=== PATIENT | male | born 1950 | race African-American/Black ===

== ENCOUNTER 2019-12-02 18:29 | Inpatient (IN) ==
[2019-12-02] MEDS ORDERED: hydrALAZINE 20 MG/1 ML VIAL IV STA (22:26)
[2019-12-02] MEDS ORDERED: ALBUTEROL 2.5 MG/3 ML NEB RESP TX PRN (22:51)
[2019-12-02] MEDS ORDERED: ONDANSETRON 4 MG/2 ML VIAL IV PRN (22:51)
[2019-12-02] MEDS ORDERED: hydrALAZINE 20 MG/1 ML VIAL IV PRN (22:56)
[2019-12-02] MEDS ORDERED: ENOXAPARIN 40 MG/0.4 ML SYRINGE SUBCUT SCH (23:00)
[2019-12-02] MEDS ORDERED: METOPROLOL TARTRATE 25 MG TABLET PO SCH (23:00)
[2019-12-02] MEDS ORDERED: niCARdipine INJ 25 MG in SODIUM CHLORIDE 0.9% 240 ML IV PRN (23:38)
[2019-12-03] MEDS: SODIUM CHLORIDE 0.9% 1,000 ML IV SCH ×3 (00:38→21:50)
[2019-12-03 01:01] LABS: Basophils % 0.3 % (0.0-0.8); Eosinophils % 0.1 % (0.00-10.9); Hematocrit 45.1 VOL% (42.0-52.0); Hemoglobin 14.7 GM/DL (14.0-18.0); Immature Granulocytes % 0.4 %; Immature Granulocytes Absolute 0.04 #; Lymphocytes # 0.9 10*3/uL (1.4-4.0); Mean Corpuscular HGB Conc 32.6 GM/DL (32-36); Mean Corpuscular Volume 83.2 FL (87-102); Mean Platelet Volume 10.1 FL (9.6-12.0); Monocytes % 10.5 % (1.7-12.7); Neutrophils % 78.7 % (38.7-73.9); Platelet Count 223 T/CUMM (130-400); Red Blood Count 5.42 MC/CUMM (3.8-5.5); Red Cell Distribution Width 13.9 % (9.3-17.3); White Blood Count 9.1 T/CUMM (4-12)
[2019-12-03 01:02] LABS: Albumin 3.9 G/DL (3.4-5.0); Bilirubin,Direct 0.28 MG/DL (0.0-0.20); Bilirubin,Indirect 0.9 MG/DL (0.0-1.0); Bilirubin,Total 1.2 MG/DL (0.2-1.0); Total Protein 8.5 G/DL (6.4-8.3)
[2019-12-03 01:08] LABS: Calcium 9.6 MG/DL (8.5-10.1); Osmolality,Calculated 270.4 MOS/KG (273-304); Risk Ratio 4.69; Thyroid Stimulating Hormone 0.527 uIU/ml (0.358-3.74); VLDL CHOLESTEROL 12.8 MG/DL
[2019-12-03] MEDS: LABETALOL 20 MG/4 ML SYRINGE IV PRN (02:07)
[2019-12-03 02:10] LABS: Apearance,Urine CLOUDY (Clear); Bilirubin,Urine Negative (Negative); Blood, Urine Large mg/dL (Negative); Glucose,Urine (UA) 50 mg/dL (Negative); Ketones,Urine 5 mg/dL (Negative); Mucus,Urine Moderate /LPF (Occasional); Nitrite,Urine Negative (Negative); Protein,Urine 100 MG/DL; RBC,Urine 8194 /HPF (0-4); Urine Color Red (Yellow); Urine Specific Gravity 1.009 (1.001-1.035); Urine Urobilinogen < 2.0 EU/DL (0.2-1.0)
[2019-12-03 02:15] LABS: Barbiturates Screen,Urine Negative (Negative); Benzodiazepines Screen,Urine Negative (Negative); Cannabinoid Screen,Urine Negative (Negative); Opiate Screen,Urine Negative (Negative); Phencyclidine Screen,Urine Negative (Negative)
[2019-12-03] MEDS: LABETALOL INJ 200 MG in SODIUM CHLORIDE 0.9% 160 ML IV SCH (04:00)
[2019-12-03 05:46] LABS: Total Protein (Chem) 8.5 G/DL (6.4-8.3)
[2019-12-03 07:53] LABS: Albumin (SPE) 5.2 G/DL (3.2-5.3); Albumin (SPE) Rel % 61.4 %; Alpha 1 (SPE) 0.3 G/DL (0.1-0.4); Alpha 2 (SPE) 0.9 G/DL (0.4-1.0); Alpha 2 (SPE) Rel % 10.4 %; Beta (SPE) 0.9 G/DL (0.5-1.1); Beta (SPE) Rel % 10.3 %; Gamma (SPE) 1.3 G/DL (0.7-1.7); Gamma (SPE) Rel % 14.9 %
[2019-12-03] MEDS ORDERED: amLODIPine 10 MG TABLET PO SCH (09:00)
[2019-12-03] MEDS: POTASSIUM CHLORIDE RIDER 10 MEQ in PREMIX 1 EACH IV PRN ×3 (09:10→11:15)
[2019-12-03] MEDS: ZIPRASIDONE 20 MG/1 ML VIAL IM PRN (11:10)
[2019-12-03] MEDS ORDERED: MIDAZOLAM 10 MG/2 ML VIAL IV ONE (12:24)
[2019-12-03] MEDS ORDERED: MEPERIDINE 50 MG/1 ML VIAL IV ONE (12:24)
[2019-12-03] MEDS ORDERED: LABETALOL 20 MG/4 ML SYRINGE IV ONE (13:05)
[2019-12-04] MEDS: LABETALOL INJ 200 MG in SODIUM CHLORIDE 0.9% 160 ML IV SCH (03:30)
[2019-12-04 05:37] LABS: Basophils % 0.5 % (0.0-0.8); Eosinophils % 0.4 % (0.00-10.9); Hematocrit 41.5 VOL% (42.0-52.0); Hemoglobin 12.8 GM/DL (14.0-18.0); Immature Granulocytes % 0.4 %; Immature Granulocytes Absolute 0.03 #; Lymphocytes # 1.1 10*3/uL (1.4-4.0); Lymphocytes % 12.9 % (21.2-54.2); Mean Corpuscular HGB Conc 30.8 GM/DL (32-36); Mean Platelet Volume 9.8 FL (9.6-12.0); Neutrophils % 74.8 % (38.7-73.9); Platelet Count 221 T/CUMM (130-400); Red Blood Count 4.77 MC/CUMM (3.8-5.5); Red Cell Distribution Width 14.1 % (9.3-17.3); White Blood Count 8.3 T/CUMM (4-12)
[2019-12-04] MEDS ORDERED: LABETALOL 20 MG/4 ML SYRINGE IV ONE (05:52)
[2019-12-04 05:54] LABS: Calcium 9.2 MG/DL (8.5-10.1); Osmolality,Calculated 270.2 MOS/KG (273-304)
[2019-12-04] MEDS: SODIUM CHLORIDE 0.9% 1,000 ML IV SCH ×2 (06:53→09:00)
[2019-12-04] MEDS: hydrALAZINE 20 MG/1 ML VIAL IV PRN (08:25)
[2019-12-04] MEDS: POTASSIUM CHLORIDE RIDER 10 MEQ in PREMIX 1 EACH IV PRN ×2 (08:25→09:55)
[2019-12-04] MEDS: ZIPRASIDONE 20 MG/1 ML VIAL IM PRN ×2 (11:02→21:26)
[2019-12-04] MEDS: LEVOFLOXACIN INJ 750 MG in PREMIX 1 EACH IV SCH (12:12)
[2019-12-04] MEDS: ATORVASTATIN 80 MG TABLET PO SCH (20:42)
[2019-12-05] MEDS: SODIUM CHLORIDE 0.9% 1,000 ML IV SCH ×3 (00:23→18:49)
[2019-12-05] MEDS: hydrALAZINE 20 MG/1 ML VIAL IV PRN (00:41)
[2019-12-05 06:21] LABS: Basophils % 0.3 % (0.0-0.8); Eosinophils % 0.1 % (0.00-10.9); Hemoglobin 11.8 GM/DL (14.0-18.0); Immature Granulocytes % 0.5 %; Immature Granulocytes Absolute 0.04 #; Lymphocytes % 13.1 % (21.2-54.2); Mean Corpuscular HGB Conc 31.9 GM/DL (32-36); Mean Corpuscular Volume 84.9 FL (87-102); Mean Platelet Volume 10.3 FL (9.6-12.0); Monocytes % 12.1 % (1.7-12.7); Neutrophils % 73.9 % (38.7-73.9); Platelet Count 226 T/CUMM (130-400); Red Blood Count 4.36 MC/CUMM (3.8-5.5); Red Cell Distribution Width 14.1 % (9.3-17.3); White Blood Count 7.6 T/CUMM (4-12)
[2019-12-05 06:46] LABS: Calcium 9.2 MG/DL (8.5-10.1); Osmolality,Calculated 281.5 MOS/KG (273-304)
[2019-12-05] MEDS: LEVOFLOXACIN INJ 750 MG in PREMIX 1 EACH IV SCH (09:19)
[2019-12-05] MEDS: ASPIRIN EC 81 MG TABLET PO SCH (09:19)
[2019-12-05] MEDS: ZIPRASIDONE 20 MG/1 ML VIAL IM PRN (16:05)
[2019-12-05] MEDS: ATORVASTATIN 80 MG TABLET PO SCH (21:01)
[2019-12-06] MEDS: hydrALAZINE 20 MG/1 ML VIAL IV PRN ×3 (00:15→12:12)
[2019-12-06] MEDS: LABETALOL 20 MG/4 ML SYRINGE IV PRN (05:19)
[2019-12-06 05:43] LABS: Basophils % 0.3 % (0.0-0.8); Eosinophils % 0.3 % (0.00-10.9); Hematocrit 38.8 VOL% (42.0-52.0); Hemoglobin 11.9 GM/DL (14.0-18.0); Immature Granulocytes % 0.4 %; Immature Granulocytes Absolute 0.03 #; Lymphocytes # 0.9 10*3/uL (1.4-4.0); Lymphocytes % 13.2 % (21.2-54.2); Mean Corpuscular HGB Conc 30.7 GM/DL (32-36); Monocytes % 13.2 % (1.7-12.7); Neutrophils % 72.6 % (38.7-73.9); Platelet Count 263 T/CUMM (130-400); Red Blood Count 4.51 MC/CUMM (3.8-5.5); Red Cell Distribution Width 14.1 % (9.3-17.3)
[2019-12-06 06:16] LABS: Calcium 9.3 MG/DL (8.5-10.1); Osmolality,Calculated 280.5 MOS/KG (273-304)
[2019-12-06] MEDS: SODIUM CHLORIDE 0.9% 1,000 ML IV SCH ×3 (06:34→21:42)
[2019-12-06] MEDS: ASPIRIN EC 81 MG TABLET PO SCH (09:33)
[2019-12-06] MEDS: LEVOFLOXACIN INJ 750 MG in PREMIX 1 EACH IV SCH (09:33)
[2019-12-06] MEDS: amLODIPine 5 MG TABLET PO SCH (14:05)
[2019-12-06] MEDS: ZIPRASIDONE 20 MG/1 ML VIAL IM PRN ×2 (14:05→21:39)
[2019-12-06] MEDS: ATORVASTATIN 80 MG TABLET PO SCH (21:39)
[2019-12-06] MEDS: QUEtiapine 25 MG TABLET PO SCH (21:41)
[2019-12-07 05:39] LABS: Calcium 8.9 MG/DL (8.5-10.1); Osmolality,Calculated 281.5 MOS/KG (273-304)
[2019-12-07 09:33] LABS: Basophils % 0.4 % (0.0-0.8); Eosinophils # 0.1 10*3/uL (0.0-0.87); Eosinophils % 0.6 % (0.00-10.9); Hematocrit 38.6 VOL% (42.0-52.0); Hemoglobin 11.8 GM/DL (14.0-18.0); Immature Granulocytes % 0.6 %; Immature Granulocytes Absolute 0.05 #; Lymphocytes # 0.9 10*3/uL (1.4-4.0); Lymphocytes % 10.6 % (21.2-54.2); Mean Corpuscular HGB Conc 30.6 GM/DL (32-36); Mean Corpuscular Volume 86.9 FL (87-102); Mean Platelet Volume 10.9 FL (9.6-12.0); Monocytes % 10.4 % (1.7-12.7); Neutrophils % 77.4 % (38.7-73.9); Platelet Count 223 T/CUMM (130-400); Red Blood Count 4.44 MC/CUMM (3.8-5.5); Red Cell Distribution Width 14.4 % (9.3-17.3); White Blood Count 8.3 T/CUMM (4-12)
[2019-12-07] MEDS: LEVOFLOXACIN INJ 750 MG in PREMIX 1 EACH IV SCH (09:41)
[2019-12-07] MEDS: ASPIRIN EC 81 MG TABLET PO SCH (09:42)
[2019-12-07] MEDS: amLODIPine 5 MG TABLET PO SCH (09:42)
[2019-12-07] MEDS: SODIUM CHLORIDE 0.9% 1,000 ML IV SCH ×2 (09:42→17:48)
[2019-12-07] MEDS: QUEtiapine 25 MG TABLET PO SCH ×2 (09:42→21:04)
[2019-12-07] MEDS: hydrALAZINE 20 MG/1 ML VIAL IV PRN (16:43)
[2019-12-07] MEDS: ATORVASTATIN 80 MG TABLET PO SCH (21:04)
[2019-12-07] MEDS: ZIPRASIDONE 20 MG/1 ML VIAL IM PRN (21:04)
[2019-12-08] MEDS: ZIPRASIDONE 20 MG/1 ML VIAL IM PRN (03:19)
[2019-12-08 06:58] LABS: Basophils % 0.3 % (0.0-0.8); Eosinophils % 0.4 % (0.00-10.9); Hematocrit 33.9 VOL% (42.0-52.0); Hemoglobin 10.7 GM/DL (14.0-18.0); Immature Granulocytes % 0.5 %; Immature Granulocytes Absolute 0.04 #; Lymphocytes % 13.6 % (21.2-54.2); Mean Corpuscular HGB Conc 31.6 GM/DL (32-36); Mean Platelet Volume 10.7 FL (9.6-12.0); Monocytes % 13.1 % (1.7-12.7); Neutrophils % 72.1 % (38.7-73.9); Platelet Count 232 T/CUMM (130-400); Red Blood Count 3.99 MC/CUMM (3.8-5.5); Red Cell Distribution Width 14.3 % (9.3-17.3); White Blood Count 7.5 T/CUMM (4-12)
[2019-12-08 07:27] LABS: Calcium 9.2 MG/DL (8.5-10.1); Osmolality,Calculated 282.4 MOS/KG (273-304)
[2019-12-08] MEDS: hydrALAZINE 20 MG/1 ML VIAL IV PRN (07:30)
[2019-12-08 07:42] LABS: Calcium 8.9 MG/DL (8.5-10.1); Osmolality,Calculated 283.4 MOS/KG (273-304)
[2019-12-08] MEDS: LEVOFLOXACIN INJ 750 MG in PREMIX 1 EACH IV SCH (09:42)
[2019-12-08] MEDS: QUEtiapine 25 MG TABLET PO SCH ×2 (09:42→21:00)
[2019-12-08] MEDS: ASPIRIN EC 81 MG TABLET PO SCH (09:42)
[2019-12-08] MEDS: amLODIPine 5 MG TABLET PO SCH (09:50)
[2019-12-08] MEDS: SODIUM CHLORIDE 0.9% 1,000 ML IV SCH ×2 (11:32→23:37)
[2019-12-08] MEDS: ACETAMINOPHEN 325 MG TABLET PO PRN (11:55)
[2019-12-08] MEDS: ATORVASTATIN 80 MG TABLET PO SCH (21:01)
[2019-12-09] MEDS: hydrALAZINE 20 MG/1 ML VIAL IV PRN (10:17)
[2019-12-09] MEDS: QUEtiapine 25 MG TABLET PO SCH ×2 (10:18→21:13)
[2019-12-09] MEDS: ASPIRIN EC 81 MG TABLET PO SCH (10:19)
[2019-12-09] MEDS: LEVOFLOXACIN INJ 750 MG in PREMIX 1 EACH IV SCH (10:19)
[2019-12-09] MEDS: amLODIPine 10 MG TABLET PO SCH (10:19)
[2019-12-09] MEDS: ACETAMINOPHEN 325 MG TABLET PO PRN ×2 (12:13→17:13)
[2019-12-09] MEDS: SODIUM CHLORIDE 0.9% 1,000 ML IV SCH ×2 (16:02→21:17)
[2019-12-09] MEDS: ATORVASTATIN 80 MG TABLET PO SCH (21:17)
[2019-12-10] MEDS: SODIUM CHLORIDE 0.9% 1,000 ML IV SCH (03:23)
[2019-12-10] MEDS: QUEtiapine 25 MG TABLET PO SCH (10:03)
[2019-12-10] MEDS: ASPIRIN EC 81 MG TABLET PO SCH (10:04)
[2019-12-10] MEDS: amLODIPine 10 MG TABLET PO SCH (10:04)
[2019-12-10] MEDS: LEVOFLOXACIN INJ 750 MG in PREMIX 1 EACH IV SCH (11:33)
[2019-12-10 12:51] VITALS: BP 179/93
== END 2019-12-10 14:08 | disposition swing bed (61) | DRG 65 ==
LOC: N.ED 18:29 → N.EDINP 22:51 → SUATTDRO 22:51 → N.ICU 12-03 00:11 → N.4E 12-04 13:53
PROVIDERS: ADMIT Internal Medicine; ATTEND Internal Medicine